=== PATIENT | female | born 1940 | race Caucasian/White ===

== ENCOUNTER 2024-01-18 10:57 | Emergency (ER) | payer MEDICARE, SELFPAY ==
[2024-01-18 11:17] VITALS: BP 145/95
--- NOTE | 2024-01-18 11:41 | ED.GENMED ---
History of Present Illness
<MICAELA Mondragon Last Filed: 01/18/24 20:22>
General
Chief Complaint: Abdominal Symptoms
Source: patient
Exam Limitations: none
Time Seen by Provider: 01/18/24 11:40
Nursing documentation reviewed up to this point in time: agreed with
History of Present Illness
History of Present Illness:
This is a 83 y/o female past medical history of migraine disorder, Shook's esophagus, GERD presenting emergency department today with concerns of 8 days of diarrhea. Patient states that 8 days ago, she started to have episodes of the diarrhea in
the morning. Patient notes these to be voluminous and explosive. She has 3 episodes in the morning and by the end of the day, it does subside. She denies any fevers or chills, bloody diarrhea, rectal bleeding, abdominal pain. Patient denies any
recent travel to the country. Patient denies any recent antibiotics. Patient denies any changes to her appetite. Patient is up-to-date on her vaccinations. Patient denies any recent new food or allergen exposures. Patient is not tried anything
for her diarrhea. Patient states that she was just moved from [place] and was unable to get an appointment with her new primary care provider. Patient denies chest pain, shortness of breath, back pain, weakness, lightheadedness.
Past History
<MICAELA Mondragon Last Filed: 01/18/24 20:22>
Past History
ED Past Medical History: GERD, Hypercholesterolemia, Hypothyroidism, Other (Colitis) and Other (Vertigo, balance problems with frequent falls)
Social History
Tobacco: Non-smoker
Personal:
Living: with family
Review of Systems
<MICAELA Mondragon Last Filed: 01/18/24 20:22>
Review of Systems
All Other Systems: ROS reviewed and negative except as documented in HPI and ROS
Phy Exam
<Sun Koch PA-C - Last Filed: 01/18/24 20:22>
Physical Exam
Physical Exam:
General: Patient is well appearing and in no acute distress; non-toxic
Skin: Warm and dry, no rashes or lesions
Head: Normocephalic, atraumatic
Eyes: Sclera non-icteric. EOMs intact.
Cardiac: Regular rate and rhythm, no murmurs
Pulm: Normal respiratory effort, no wheezes, rales, rhonchi
Abdomen: No abdominal tenderness to palpation, no palpable masses
Neuro: CN II-XII intact, no focal neurologic deficits.
Psychiatric: Appropriate mood and affect.
Course
Williamslt;Sun Koch PA-C - Last Filed: 01/18/24 20:22>
Orders/Labs/Results
Orders:
Orders
01/18/24 11:51
Complete Blood Count/With Diff Urgent
Comprehensive Metabolic Panel Urgent
Abnormal Lab Results
01/18/24
11:51
WBC 11.7 H 10^3/uL
(4.8-10.8)
Abs Immat Gran (auto) 0.1 H 10^3/uL
(0-0.05)
Absolute Neuts (auto) 8.0 H 10^3/uL
(1.4-6.5)
Absolute Monos (auto) 0.9 H 10^3/uL
(0.1-0.6)
Lymphocytes % 19.6 L %
(20.5-51.1)
Glucose 109 H mg/dl
(70-99)
01/18/24 11:51
01/18/24 11:51
Vital Signs
Initial and Last Documented VS:
Initial Vital Signs
Temp Pulse Resp BP Pulse Ox
98.5 F 53 18 145/95 92
01/18/24 11:17 01/18/24 11:17 01/18/24 11:17 01/18/24 11:17 01/18/24 11:17
Last Documented Vital Signs
Temp Pulse Resp BP Pulse Ox
98.7 F 97 18 128/96 95
01/18/24 14:43 01/18/24 14:43 01/18/24 14:43 01/18/24 14:43 01/18/24 14:43
<Jerrica العلي MD - Last Filed: 01/18/24 13:50>
Orders/Labs/Results
Orders:
Orders
01/18/24 11:51
Complete Blood Count/With Diff Urgent
Comprehensive Metabolic Panel Urgent
Abnormal Lab Results
01/18/24
11:51
WBC 11.7 H 10^3/uL
(4.8-10.8)
Abs Immat Gran (auto) 0.1 H 10^3/uL
(0-0.05)
Absolute Neuts (auto) 8.0 H 10^3/uL
(1.4-6.5)
Absolute Monos (auto) 0.9 H 10^3/uL
(0.1-0.6)
Lymphocytes % 19.6 L %
(20.5-51.1)
Glucose 109 H mg/dl
(70-99)
01/18/24 11:51
01/18/24 11:51
Vital Signs
Initial and Last Documented VS:
Initial Vital Signs
Temp Pulse Resp BP Pulse Ox
98.5 F 53 18 145/95 92
01/18/24 11:17 01/18/24 11:17 01/18/24 11:17 01/18/24 11:17 01/18/24 11:17
Last Documented Vital Signs
Temp Pulse Resp BP Pulse Ox
98.7 F 97 18 128/96 95
01/18/24 14:43 01/18/24 14:43 01/18/24 14:43 01/18/24 14:43 01/18/24 14:43
<Sun Koch PA-C - Last Filed: 01/18/24 20:22>
MDM/Problems Addressed
Differential Diagnosis Includes:
ddx include viral syndrome, c diff colitis, ibs
MDM/Problems Addressed:
Diarrhea:
This is a 83 y/o female past medical history of migraine disorder, Shook's esophagus, GERD presenting emergency department today with concerns of 8 days of diarrhea. Patient states that 8 days ago, she started to have episodes of the diarrhea in
the morning. Patient notes these to be voluminous and explosive. She has 3 episodes in the morning and by the end of the day, it does subside later on. Patient has not had any fevers or chills, she denies any blood in diarrhea, denies any rectal
bleeding. On exam, she is afebrile, her vitals are stable, and her CBC and CMP are unremarkable. No electrolyte derangements, no concern for acute dehydration at this time. Did attempt to obtain stool culture however patient was not able to
provide a sample while here. Patient has no tenderness on abdominal exam, no indication for CT at this time. Patient is stable for outpatient follow-up. Patient recently moved from [place] and is looking for a new animal herder, I did
provide referral.
Chronic conditions affecting care:
GERD, asthma, shook's esophagus hyperlipidemia, colitis
<Sun Koch PA-C - Last Filed: 01/18/24 20:22>
*Critical Care Note
Total Time (30-74mins, 75-104mins- exclusive of procedures): Not Applicable
ED Attending Note
<Sun Koch PA-C - Last Filed: 01/18/24 20:22>
-
Portions of this chart may have been created with voice recognition software.� Occasional wrong word or��sound alike� substitutions may have occurred due to the inherent limitations of voice recognition software.
<Jerrica العلي MD - Last Filed: 01/18/24 13:50>
ED Attending Note
Patient seen and examined by attending physician: Yes
I performed the substantive portion of visit, reviewed & personally made and approve the management plan that is documented in note by myself or SKY.: Yes
ED Attending Note:
83-year-old female presents emergency department with complaints of 'explosive' diarrhea every morning for the last 12 days. Presents emergency department because she states she has not yet transferred medical care to this area given her recent
move, but beginning January she will have a consistent primary care provider. She denies abdominal pain, fever, chills, bleeding, black stool, or other complaints. On exam, patient awake alert stable pleasant. Unable to provide a sample of
stool here. Workup generally unremarkable patient understands this is preliminary and continued workup as an outpatient important
Discharge Plan
Departure
Patient Disposition: Home (Routine Discharge)
Date of Disposition: 01/18/24
Time of Disposition: 14:21
Patient with high blood pressure during this ER visit?: Yes
Condition: Good
Discharge Problem:
Diarrhea
Instructions: Diarrhea, Adult ED, BLOOD PRESSURE
Referrals:
Anthony Hugo MD [Active] - Call in 1-3 days for appt
Andres Vivas MD [Active] - Call in 1-3 days for appt
NONE,* [Family Provider] -
Activity Restrictions/Additional Instructions:
You are seen here in the emergency department today for evaluation of diarrhea. Please follow-up with your primary care provider with your scheduled appointment as discussed.
Please return emergency department should you experience fevers or chills, lightheadedness, dizziness, nausea or vomiting, abdominal pain, bloody stools, rectal bleeding, chest pain, shortness of breath, or any other signs or symptoms concerning to
you.
Interventions
Interventions:
ED- Fall Risk Assessment Last Done: 01/18/24 14:43
*Nursing Disposition Last Done: 01/18/24 14:43
HH-Vzkpba-Fexhoxlwgm Assessment Last Done: 01/18/24 11:47
Discharge Date and Time
Discharge Date/Time: 01/18/24 14:46
Print Language: SWEDISH
[2024-01-18 11:59] LABS: % Basophils 0.5 % (0-2); % Eosinophils 3.8 % (0-6); % Immature Granulocytes 0.5 % (0-0.5); % Lymphocytes 19.6 % (20.5-51.1); % Monocytes 7.5 % (1.7-9.3); % Neutrophils 68.1 % (42.2-75.2); Absolute Basophils 0.1 10^3/uL (0-0.2); Absolute Eosinophils 0.4 10^3/uL (0-0.7); Absolute Immature Granulocytes 0.1 10^3/uL (0-0.05); Absolute Lymphocytes 2.3 10^3/uL (1.2-3.4); Absolute Monocytes 0.9 10^3/uL (0.1-0.6); Hematocrit 40.8 % (37.0-47.0); Mean Corp Hgb Conc. 34.3 g/dL (33.0-37.0); Mean Corpuscular Volume 90.5 fL (81.0-99.0); Mean Platelet Volume 8.9 fL (7.4-10.4); Nucleated Red Blood Cells % 0 %; Platelet Count 310 10^3/uL (130-400); Red Blood Cell Count 4.51 10^6/uL (4.20-5.40); Red Cell Dist. Width 13.4 % (11.5-14.5); White Blood Cell Count 11.7 10^3/uL (4.8-10.8)
[2024-01-18 12:14] LABS: ALT (SGPT) 28 U/L (0-35); AST (SGOT) 34 U/L (14-36); Albumin 4.3 g/dl (3.5-5.0); Alkaline Phosphatase 77 U/L (38-126); Blood Urea Nitrogen 16 mg/dl (7-17); Calcium 9.6 mg/dl (8.4-10.2); Carbon Dioxide 26 mmol/L (22-30); Chloride 100 mmol/L (98-107); Glucose 109 mg/dl (70-99); Potassium 3.8 mmol/L (3.5-5.1); Sodium 136 mmol/L (135-145); Total Bilirubin 0.7 mg/dl (0.2-1.3); Total Protein 7.2 g/dl (6.3-8.2); eGFR > 60.00
[2024-01-18 14:43] VITALS: BP 128/96
== END 2024-01-18 14:46 | disposition home or self-care (01) ==
LOC: EMR 10:57
PROVIDERS: Physician Assistant; EMERGENCY PHYSICIAN Emergency Medicine
DX: R19.7 Diarrhea, unspecified (principal); K22.70 Barrett's esophagus without dysplasia; K21.9 Gastro-esophageal reflux disease without esophagitis; R03.0 Elevated blood-pressure reading, without diagnosis of hypertension
CPT/HCPCS: 99283; 80053; 85025

== ENCOUNTER → 2024-03-06 15:31 | Outpatient (REF) | payer MEDICARE, SELFPAY ==
[2024-03-06 16:51] LABS: % Basophils 0.3 % (0-2); % Eosinophils 2.3 % (0-6); % Immature Granulocytes 0.7 % (0-0.5); % Lymphocytes 29.8 % (20.5-51.1); % Monocytes 8.9 % (1.7-9.3); Absolute Eosinophils 0.2 10^3/uL (0-0.7); Absolute Immature Granulocytes 0.1 10^3/uL (0-0.05); Absolute Lymphocytes 2.6 10^3/uL (1.2-3.4); Absolute Monocytes 0.8 10^3/uL (0.1-0.6); Hematocrit 42.8 % (37.0-47.0); Hemoglobin 14.3 g/dL (12.0-16.0); Mean Corp Hgb Conc. 33.4 g/dL (33.0-37.0); Mean Corpuscular Volume 89.9 fL (81.0-99.0); Mean Platelet Volume 9.5 fL (7.4-10.4); Nucleated Red Blood Cells % 0 %; Platelet Count 266 10^3/uL (130-400); Red Blood Cell Count 4.76 10^6/uL (4.20-5.40); Red Cell Dist. Width 14.1 % (11.5-14.5); White Blood Cell Count 8.6 10^3/uL (4.8-10.8)
[2024-03-06 17:00] LABS: ALT (SGPT) 24 U/L (0-35); AST (SGOT) 32 U/L (14-36); Albumin 4.4 g/dl (3.5-5.0); Alkaline Phosphatase 68 U/L (38-126); Blood Urea Nitrogen 19 mg/dl (7-17); Calcium 9.7 mg/dl (8.4-10.2); Carbon Dioxide 27 mmol/L (22-30); Chloride 102 mmol/L (98-107); Glucose 100 mg/dl (70-99); HDL Cholesterol 64 mg/dl; LDL Cholesterol, Calculated 116 mg/dl; Potassium 4.5 mmol/L (3.5-5.1); Sodium 143 mmol/L (135-145); Total Bilirubin 0.4 mg/dl (0.2-1.3); Total Cholesterol 223 mg/dl (50-199); Total Protein 7.2 g/dl (6.3-8.2); Triglyceride 216 mg/dl (10-149); Very Low Density Lipoprotein 43 mg/dl (0-30); eGFR > 60.00
[2024-03-06 17:18] LABS: Vitamin D, 25-OH*** 64.8 ng/mL (30-80)
[2024-03-06 17:32] LABS: TSH Reflex To Free T4 2.64 uIU/ml (0.47-4.68)
[2024-03-06 18:08] LABS: Folate > 20.0 ng/ml (2.76-20); Vitamin B12 709 pg/ml (239-931)
== END ==
LOC: OLABPV 15:31
DX: M06.9 Rheumatoid arthritis, unspecified (principal); M35.89 Other specified systemic involvement of connective tissue; E03.9 Hypothyroidism, unspecified; E55.9 Vitamin D deficiency, unspecified; F03.90 Unspecified dementia, unspecified severity, without behavioral disturbance, psychotic disturbance, mood disturbance, and anxiety
CPT/HCPCS: 36415; 80053; 80061; 82306; 82607; 82746; 84443; 85025

== ENCOUNTER → 2024-04-17 10:02 | Outpatient (REF) | payer MEDICARE, SELFPAY ==
[2024-04-17 11:14] LABS: % Basophils 0.5 % (0-2); % Eosinophils 1.3 % (0-6); % Immature Granulocytes 1.3 % (0-0.5); % Lymphocytes 25.7 % (20.5-51.1); % Monocytes 8.8 % (1.7-9.3); % Neutrophils 62.4 % (42.2-75.2); Absolute Basophils 0.1 10^3/uL (0-0.2); Absolute Eosinophils 0.1 10^3/uL (0-0.7); Absolute Immature Granulocytes 0.1 10^3/uL (0-0.05); Absolute Lymphocytes 2.5 10^3/uL (1.2-3.4); Absolute Monocytes 0.9 10^3/uL (0.1-0.6); Hemoglobin 14.8 g/dL (12.0-16.0); Mean Corp Hgb Conc. 33.6 g/dL (33.0-37.0); Mean Corpuscular Volume 92.2 fL (81.0-99.0); Mean Platelet Volume 9.3 fL (7.4-10.4); Nucleated Red Blood Cells % 0 %; Platelet Count 267 10^3/uL (130-400); Red Blood Cell Count 4.77 10^6/uL (4.20-5.40); Red Cell Dist. Width 15.4 % (11.5-14.5); White Blood Cell Count 9.7 10^3/uL (4.8-10.8)
[2024-04-17 12:04] LABS: ALT (SGPT) 24 U/L (0-35); AST (SGOT) 31 U/L (14-36); Albumin 4.3 g/dl (3.5-5.0); Alkaline Phosphatase 61 U/L (38-126); Blood Urea Nitrogen 19 mg/dl (7-17); Calcium 9.4 mg/dl (8.4-10.2); Carbon Dioxide 26 mmol/L (22-30); Chloride 104 mmol/L (98-107); Glucose 103 mg/dl (70-99); Potassium 4.5 mmol/L (3.5-5.1); Sodium 141 mmol/L (135-145); Total Bilirubin 0.5 mg/dl (0.2-1.3); Total Protein 7.1 g/dl (6.3-8.2); eGFR > 60.00
[2024-04-17 12:20] LABS: C-Reactive Protein < 5.00 mg/L (0.0-10.00)
[2024-04-17 14:52] LABS: Erythrocyte Sed Rate 12 mm/hour (0-20)
== END ==
LOC: OLABPV 10:02
PROVIDERS: ATTENDING PHYSICIAN Internal Medicine
DX: K75.9 Inflammatory liver disease, unspecified (principal); M06.4 Inflammatory polyarthropathy; Z51.81 Encounter for therapeutic drug level monitoring
CPT/HCPCS: 36415; 80053; 85025; 85652; 86140

== ENCOUNTER → 2024-05-11 09:20 | Outpatient (REF) | payer MEDICARE, SELFPAY ==
[2024-05-11 10:23] LABS: % Basophils 0.5 % (0-2); % Eosinophils 2.3 % (0-6); % Immature Granulocytes 0.7 % (0-0.5); % Lymphocytes 26.9 % (20.5-51.1); % Monocytes 6.8 % (1.7-9.3); % Neutrophils 62.8 % (42.2-75.2); Absolute Eosinophils 0.2 10^3/uL (0-0.7); Absolute Immature Granulocytes 0.1 10^3/uL (0-0.05); Absolute Monocytes 0.5 10^3/uL (0.1-0.6); Absolute Neutrophils 4.6 10^3/uL (1.4-6.5); Hematocrit 44.5 % (37.0-47.0); Hemoglobin 14.3 g/dL (12.0-16.0); Mean Corp Hgb Conc. 32.1 g/dL (33.0-37.0); Mean Corpuscular Hgb 31.4 pg (27.0-31.0); Mean Corpuscular Volume 97.6 fL (81.0-99.0); Mean Platelet Volume 9.1 fL (7.4-10.4); Nucleated Red Blood Cells % 0 %; Platelet Count 277 10^3/uL (130-400); Red Blood Cell Count 4.56 10^6/uL (4.20-5.40); Red Cell Dist. Width 15.7 % (11.5-14.5); White Blood Cell Count 7.4 10^3/uL (4.8-10.8)
[2024-05-11 10:47] LABS: ALT (SGPT) 24 U/L (0-35); AST (SGOT) 32 U/L (14-36); Alkaline Phosphatase 61 U/L (38-126); Blood Urea Nitrogen 18 mg/dl (7-17); Calcium 9.3 mg/dl (8.4-10.2); Carbon Dioxide 31 mmol/L (22-30); Chloride 104 mmol/L (98-107); Glucose 107 mg/dl (70-99); Potassium 4.2 mmol/L (3.5-5.1); Sodium 141 mmol/L (135-145); Total Bilirubin 0.4 mg/dl (0.2-1.3); Total Protein 6.5 g/dl (6.3-8.2); Uric Acid 6.4 mg/dl (2.5-6.2); eGFR 56.25
[2024-05-11 11:02] LABS: Hepatitis B Surface Antigen Negative (Negative)
[2024-05-11 11:20] LABS: Hepatitis C Antibody Negative (Negative)
[2024-05-11 12:33] LABS: Erythrocyte Sed Rate 44 mm/hour (0-20)
[2024-05-13 16:25] LABS: Quantiferon Mitogen minus NIL 9.93 IU/mL; Quantiferon NIL 0.07 IU/mL; Quantiferon Plus TB2 minus NIL 0.01 IU/mL (<=0.34); Quantiferon TB Gold Plus Negative (Negative)
[2024-05-13 23:20] LABS: CCP Antibody IgG/IgA 4 Units (0-19)
== END ==
LOC: OLABPV 09:20
PROVIDERS: ATTENDING PHYSICIAN Internal Medicine
DX: K75.9 Inflammatory liver disease, unspecified (principal); M06.4 Inflammatory polyarthropathy; Z51.81 Encounter for therapeutic drug level monitoring; Z22.7 Latent tuberculosis; M06.9 Rheumatoid arthritis, unspecified; M10.9 Gout, unspecified
CPT/HCPCS: 36415; 80053; 84550; 85025; 85652; 86140; 86200; 86430; 86480; 86705; 86803; 87340

== ENCOUNTER → 2024-06-14 07:00 | Outpatient (REF) | payer MEDICARE, SELFPAY ==
[2024-06-14 17:22] LABS: Urine Albumin Negative (Neg - Trace); Urine Bilirubin 1+ (Negative); Urine Character Clear (Clear); Urine Color Yellow; Urine Glucose Negative (Negative); Urine Ketone Negative (Negative); Urine Leukocyte Trace (Negative); Urine Nitrite Positive (Negative); Urine Occult Blood Trace (Negative); Urine Specific Gravity 1.015 (<1.030); Urine Urobilinogen 1+ (Neg - 1+); Urine pH 6.5 (5.0-9.0)
[2024-06-14 17:29] LABS: Urine Calcium Oxalate Crystals Present
[2024-06-14 17:31] LABS: Urine Bacteria Many (Negative); Urine Red Blood Cell 0-2 /HPF (0-2)
== END ==
LOC: OLABPV 07:00
PROVIDERS: ATTENDING PHYSICIAN Nurse Practitioner Acute Care
DX: R30.0 Dysuria (principal)
CPT/HCPCS: 81003; 81015; 87077; 87086; 87186

== ENCOUNTER → 2024-06-21 13:00 | Outpatient (REF) | payer MEDICARE, SELFPAY ==
[2024-06-21 17:23] LABS: Urine Albumin Trace (Neg - Trace); Urine Bilirubin Negative (Negative); Urine Character Clear (Clear); Urine Color Yellow; Urine Glucose Negative (Negative); Urine Ketone Negative (Negative); Urine Leukocyte 1+ (Negative); Urine Nitrite Negative (Negative); Urine Occult Blood Trace (Negative); Urine Specific Gravity 1.015 (<1.030); Urine Urobilinogen Negative (Neg - 1+)
[2024-06-21 17:49] LABS: Urine Squamous Cell 0-2 /LPF (Few)
[2024-06-21 17:50] LABS: Urine Amorphous Seen; Urine Bacteria Many (Negative); Urine Red Blood Cell 0-2 /HPF (0-2); Urine White Cell 16-20 /HPF (0-5)
== END ==
LOC: OLABPV 13:00
PROVIDERS: ATTENDING PHYSICIAN Nurse Practitioner Acute Care
DX: R31.9 Hematuria, unspecified (principal); R30.0 Dysuria
CPT/HCPCS: 81003; 81015; 87077; 87086

== ENCOUNTER → 2024-07-10 12:35 | Outpatient (REF) | payer MEDICARE, SELFPAY | LOC: RAD 12:35 | PROVIDERS: ATTENDING PHYSICIAN Nurse Practitioner Acute Care | DX: M06.9 Rheumatoid arthritis, unspecified (principal); Z79.52 Long term (current) use of systemic steroids; Z91.81 History of falling; Z78.0 Asymptomatic menopausal state; R06.00 Dyspnea, unspecified | CPT/HCPCS: 71046; 77080 ==

== ENCOUNTER → 2024-08-21 10:51 | Outpatient (REF) | payer MEDICARE, SELFPAY ==
[2024-08-21 11:19] LABS: % Basophils 0.6 % (0-2); % Immature Granulocytes 0.4 % (0-0.5); % Lymphocytes 31.3 % (20.5-51.1); % Monocytes 9.6 % (1.7-9.3); % Neutrophils 55.1 % (42.2-75.2); Absolute Eosinophils 0.2 10^3/uL (0-0.7); Absolute Lymphocytes 2.1 10^3/uL (1.2-3.4); Absolute Monocytes 0.6 10^3/uL (0.1-0.6); Absolute Neutrophils 3.7 10^3/uL (1.4-6.5); Hemoglobin 13.7 g/dL (12.0-16.0); Mean Corp Hgb Conc. 33.4 g/dL (33.0-37.0); Mean Corpuscular Hgb 32.3 pg (27.0-31.0); Mean Corpuscular Volume 96.7 fL (81.0-99.0); Mean Platelet Volume 9.2 fL (7.4-10.4); Nucleated Red Blood Cells % 0 %; Platelet Count 308 10^3/uL (130-400); Red Blood Cell Count 4.24 10^6/uL (4.20-5.40); White Blood Cell Count 6.7 10^3/uL (4.8-10.8)
[2024-08-21 11:39] LABS: Erythrocyte Sed Rate 9 mm/hour (0-20)
[2024-08-21 11:52] LABS: ALT (SGPT) 19 U/L (0-35); AST (SGOT) 26 U/L (14-36); Albumin 4.4 g/dl (3.5-5.0); Alkaline Phosphatase 69 U/L (38-126); Blood Urea Nitrogen 17 mg/dl (7-17); Calcium 9.8 mg/dl (8.4-10.2); Carbon Dioxide 27 mmol/L (22-30); Chloride 105 mmol/L (98-107); Glucose 100 mg/dl (70-99); HDL Cholesterol 55 mg/dl; LDL Cholesterol, Calculated 98 mg/dl; Potassium 4.3 mmol/L (3.5-5.1); Sodium 143 mmol/L (135-145); Total Bilirubin 0.5 mg/dl (0.2-1.3); Total Cholesterol 201 mg/dl (50-199); Total Protein 6.9 g/dl (6.3-8.2); Triglyceride 240 mg/dl (10-149); Very Low Density Lipoprotein 48 mg/dl (0-30); eGFR > 60.00
[2024-08-21 11:57] LABS: C-Reactive Protein < 5.00 mg/L (0.0-10.00)
[2024-08-21 12:33] LABS: Rheumatoid Agglutinin Less Than 10 IU (<10 IU)
[2024-08-21 12:38] LABS: Uric Acid 6.3 mg/dl (2.5-6.2)
[2024-08-23 04:47] LABS: Complement C3 128 mg/dl (88-165)
[2024-08-23 19:07] LABS: ds-DNA Ab, IgG Reflex To Titer 7 IU (0-24)
[2024-08-23 20:20] LABS: ANA, IgG Reflex to HEp-2 Detected (None Detected)
[2024-08-23 21:10] LABS: CCP Antibody IgG/IgA 4 Units (0-19)
[2024-08-23 22:43] LABS: SSA 52 (Ro)(ENA) Ab, IgG 38 AU/mL (0-40); SSA 60 (Ro)(ENA) Ab, IgG 36 AU/mL (0-40); SSB (La)(ENA) Ab, IgG 0 AU/mL (0-40); Smith (ENA) Antibody, IgG 4 AU/mL (0-40)
[2024-08-24 07:45] LABS: Smith/RNP (ENA), IgG 16 Units (0-19)
== END ==
LOC: OLABPV 10:51
PROVIDERS: ATTENDING PHYSICIAN Nurse Practitioner Acute Care; REFERRING PHYSICIAN Internal Medicine
DX: E78.5 Hyperlipidemia, unspecified (principal); M06.4 Inflammatory polyarthropathy; Z51.81 Encounter for therapeutic drug level monitoring; M06.9 Rheumatoid arthritis, unspecified; M32.9 Systemic lupus erythematosus, unspecified; M35.00 Sjogren syndrome, unspecified
CPT/HCPCS: 36415; 80053; 80061; 84550; 85025; 85652; 86038; 86140; 86160; 86200; 86225; 86235; 86430

== ENCOUNTER 2024-09-05 21:32 | Emergency (ER) | payer MEDICARE, SELFPAY ==
[2024-09-05 21:33] VITALS: BP 112/78; BMI 23.9
[2024-09-05 22:00] VITALS: BP 123/101
--- NOTE | 2024-09-05 22:26 | ED.GENMED ---
History of Present Illness
General
Chief Complaint: Fall
Source: patient, spouse, ambulance crew and previous hospital records (ED visit September 2018 after patient suffered a fall. At that time admitted to frequent falls, similar as arely.)
Exam Limitations: none
Time Seen by Provider: 09/05/24 22:06
Nursing documentation reviewed up to this point in time: agreed with
History of Present Illness
History of Present Illness:
This is an 83-year-old woman who resides with her at [facility]. She has history of rheumatoid arthritis, Sjogren syndrome, hypothyroidism, hyperlipidemia, ambulatory dysfunction with history of frequent falls. She admits
to suffering mechanical falls generally 1-2 times per month or so. Tonight she suffered a fall, falling forward and striking her forehead on the ground. She denies loss of consciousness, has been ambulatory since incident. She complains of
laceration to her right forehead, complains of mild generalized frontal headache and has had 2 episodes of vomiting since the fall, an additional episode of vomiting since arrival to the ED. She denies dizziness or lightheadedness, she denies neck
or back pain, no chest nor abdominal pain. She denies weakness or numbness.
She does note some right lateral hip pain and states that she was complaining of right lateral hip pain earlier this evening, prior to the fall.
She does have a cane that she uses sporadically. She states even though she suffers frequent falls she has not required a walker nor other assistive devices.
Unsure as to her last Tdap.
She takes no anticoagulants on a daily basis.
Her daily medications include: Methotrexate, Apriso, folic acid, Nexium, duloxetine, levothyroxine, simvastatin, prednisone.
Past History
Past History
ED Past Medical History: GERD, Hypercholesterolemia, Hypothyroidism, Other (Colitis) and Other (Vertigo, balance problems with frequent falls; rheumatoid arthritis, Sjogren syndrome)
ED Past Surgical History: Orthopedic (Right knee replacement; wrist surgery, ankle surgery), Tonsilectomy and Urological (Bladder)
Social History
Tobacco: Non-smoker
Alcohol: None
Personal:
Living: with family ([facility])
Employment: Retired
Family History
Family History: Other (Noncontributory)
Phy Exam
Physical Exam
Physical Exam:
TRAUMA EXAM:
VITAL SIGNS: Vital signs reviewed, cooperative. 83-year-old woman appears her stated age, bright and alert, quite chatty, pleasant and appears in no acute distress. Has vomited a fair amount of partially digested food.
DISTRESS: No active disease
EYES: Pupils reactive, no orbital trauma. Extraocular muscles intact.
NOSE: No deformity or epistaxis
FACE AND SCALP: There is a 3 cm vertical laceration right forehead, no active bleeding, mild local tenderness to palpation, no focal hematoma nor palpable bony abnormality, external canals no blood
NECK: Supple nontender
BACK: Back nontender, pelvis stable to compression
RESPIRATORY: No distress, breath sounds normal, no tender chest wall
CARDIAC: No murmur, pulses equal and strong
ABDOMEN: Soft nontender bowel sounds normal
SKIN: Warm and dry, normal color. Good turgor. Few small subacute ecchymotic patches bilateral lower extremities.
EXTREMITIES: Mild tenderness to palpation right lateral hip with full range of motion of right hip without difficulty. No palpable bony pelvic tenderness.
NEUROLOGICAL: Alert, oriented, no motor deficits
PSYCH: Mood affect normal
Course
Orders/Labs/Results
Orders:
Orders
09/05/24 22:22
CT Head W/o Iv Contrast Urgent
Comment:
Reason For Exam: fall, head injury, N/V
Cardiac Monitoring- Treatment ONCE
Lidocaine/Epinephrine/Tetracai [Let Topical Anesthetic Gel] 3 ml TOPICAL NOW STA
Ondansetron Injectable [Zofran] 4 mg IV NOW STA
Tetanus/Diphth/Acelpertussis [Adacel] 0.5 ml IM .ONCE ONE
09/05/24 22:23
CT Cervical Spine W/o Iv Contr Urgent
Comment:
Reason For Exam: fall, head injury, N/V
09/05/24 22:24
Electrocardiogram (*1) Urgent
Reason for Study: Vertigo / Dizzy
EKG- Treatment ONCE
Hip, Right 2-3 Views [CR Hip - RT w/wo Pel 2-3 Vw*] Urgent
Comment:
Reason For Exam: FALL, RIGHT HIP PAIN
Include a pelvis x-ray?: Yes
09/05/24 23:02
Complete Blood Count/With Diff Urgent
Comprehensive Metabolic Panel Urgent
Lipase Urgent
Abnormal Lab Results
09/05/24
23:02
WBC 13.7 H 10^3/uL
(4.8-10.8)
RBC 4.18 L 10^6/uL
(4.20-5.40)
MCH 31.8 H pg
(27.0-31.0)
Absolute Neuts (auto) 10.5 H 10^3/uL
(1.4-6.5)
Absolute Monos (auto) 0.9 H 10^3/uL
(0.1-0.6)
Neutrophils % 76.8 H %
(42.2-75.2)
Lymphocytes % 14.6 L %
(20.5-51.1)
BUN 18 H mg/dl
(7-17)
Glucose 114 H mg/dl
(70-99)
Calcium 10.3 H mg/dl
(8.4-10.2)
09/05/24 23:02
09/05/24 23:02
Vital Signs
Initial and Last Documented VS:
Initial Vital Signs
Temp Pulse Resp BP Pulse Ox
97.6 F 95 16 112/78 92
09/05/24 21:33 09/05/24 21:33 09/05/24 21:33 09/05/24 21:33 09/05/24 21:33
Last Documented Vital Signs
Temp Pulse Resp BP Pulse Ox
97.6 F 93 16 123/101 96
09/05/24 21:33 09/05/24 22:12 09/05/24 22:12 09/05/24 22:00 09/05/24 22:15
Procedures
Laceration Closure
Right Forehead:
Status of Wound: clean
Size of Wound in cm: 3.5
Description of Wound Edges: sharp
Preparation: cleaned with saline
Anesthesia: Topical-LET
Revision/Debridement: routine- no revision and irrigate-direct pressure
Wound exploration: explored to base- no FB and no tendon involvement
Type of Closure: Dermabond-skin glue (Steri-Strips applied over the wound to the lateral)
MDM/Problems Addressed
Differential Diagnosis Includes:
Closed head injury with forehead laceration with several episodes of vomiting. Significant concern for closed head injury. Will check CT of the head and due to head injury, advanced age, will check CT cervical spine.
Will update Tdap.
Patient has history of frequent falls and I suspect mechanical fall but will check labs, EKG, [employer], assess for potential arrhythmia.
Will give Zofran for nausea.
Right hip pain, concern for occult fracture, will check x-ray.
Chronic conditions affecting care:
Rheumatoid arthritis, chronic ambulatory dysfunction with frequent falls.
According to our records, chronic prednisone use thus at risk for osteoporosis, at risk for fracture.
Advanced age.
Chronic conditions affecting care: Neurological disorder (Ambulatory dysfunction with frequent falls) and Immunosuppressed
*Radiology
Radiology exam reviewed: preliminary read by ED provider (Right hip x-ray shows DJD, no fracture.) and radiology read reviewed (CT of the head and cervical spine no evidence of acute traumatic injury.)
*Pulse Oximetry
Patient hypoxic: no
*EKG
Interpreted by ED Provider?: Yes
Interpretation: normal
Comparison EKG: no comparison EKG present
Rate: normal
Rhythm: sinus
[place]: normal axis
Interval: normal interval
QRS Pattern: normal QRS
Ischemia: no ischemia
*Ste[employer]er Interpretation
Rate: normal
Interpretation: normal
Rhythm: sinus
*Critical Care Note
Total Time (30-74mins, 75-104mins- exclusive of procedures): Not Applicable
Update Note
Update Note:
00:15
Patient has had no further vomiting after a dose of Zofran.
She remains bright and alert, easily communicative, no focal neurodeficits.
CT of the head and cervical spine are unremarkable, no evidence of acute traumatic finding.
Right hip x-ray shows moderate DJD but no evidence of fracture.
Labs show mildly elevated white blood cell count of 13.7. Nonspecific but may be related to chronic prednisone use. Chemistries are unremarkable.
EKG is unremarkable showing normal sinus rhythm. Normal intervals. Monitor shows similar, normal sinus rhythm without ectopy.
She remains hemodynamically stable.
Right forehead laceration repaired with Dermabond wound glue and Steri-Strips. Routine wound care instructions discussed.
Recommend Tylenol as needed for pain.
Will prescribe Zofran ODT for as needed nausea.
Due to frequent falls I highly encourage patient to consider walker versus rollator and I have provided a prescription for rollator.
Recommend prompt follow-up with PCP as well as demolition expert.
Return precautions discussed.
ED Attending Note
-
Portions of this chart may have been created with voice recognition software.� Occasional wrong word or��sound alike� substitutions may have occurred due to the inherent limitations of voice recognition software.
Discharge Plan
Departure
Patient Disposition: Home (Routine Discharge)
Date of Disposition: 09/06/24
Time of Disposition: 00:18
Patient with high blood pressure during this ER visit?: No
Condition: Good
Discharge Problem:
mechanical fall at home, right forehead laceration, Closed head injury with concussion, Contusion of hip, right
Instructions: Concussion, Adult (DC), Laceration Repair With Glue (DC), Preventing falls in adults, Tdap vaccine, Nausea and vomiting in adults
Prescriptions:
New
ondansetron 4 mg tablet,disintegrating
4 mg PO QID PRN (Reason: nausea and vomiting) Qty: 20 0RF
(DME) Ultra-Light Rollator Misc
See Rx Instructions .ROUTE Qty: 1 0RF
Rx Instructions:
As directed
Referrals:
UNKNOWN - PT DOES,NOT KNOW [Unknown Provider] -
Activity Restrictions/Additional Instructions:
Follow-up with your PCP as well as demolition expert for recheck.
Keep the Steri-Strips/wound clean and dry for at least the next 4 to 5 days. Steri-Strips and wound glue will peel up and fall off on their own generally after 7 to 10 days.
Due to frequent falls I highly recommend you consider a walker versus rollator to utilize while ambulating.
Interventions
Interventions:
*Risk Screen - Suicide Last Done: 09/05/24 21:33
*General Assessment Last Done: 09/05/24 21:33
*Neglect/Abuse Screening Last Done: 09/05/24 21:33
*ED- Fall Risk Assessment Last Done: 09/05/24 21:33
*ED COVID-19 Vaccine History Last Done: 09/05/24 21:33
ED-Musculoskeletal Assessment Last Done: 09/05/24 21:46
ED- Neurological Assessment Last Done: 09/05/24 21:46
ED-Skin Assessment Last Done: 09/05/24 21:46
Discharge Date and Time
Print Language: ITALIAN
[2024-09-05] MEDS: LET TOPICAL ANESTHETIC GEL 3 ML TOPICAL (22:55)
[2024-09-05] MEDS: ADACEL 0.5 ML IM (22:55)
[2024-09-05] MEDS: ZOFRAN 4 MG IV (23:01)
[2024-09-05 23:02] VITALS: BP 126/72
[2024-09-05 23:17] LABS: % Basophils 0.4 % (0-2); % Eosinophils 1.2 % (0-6); % Immature Granulocytes 0.3 % (0-0.5); % Lymphocytes 14.6 % (20.5-51.1); % Monocytes 6.7 % (1.7-9.3); % Neutrophils 76.8 % (42.2-75.2); Absolute Basophils 0.1 10^3/uL (0-0.2); Absolute Eosinophils 0.2 10^3/uL (0-0.7); Absolute Monocytes 0.9 10^3/uL (0.1-0.6); Absolute Neutrophils 10.5 10^3/uL (1.4-6.5); Hemoglobin 13.3 g/dL (12.0-16.0); Mean Corp Hgb Conc. 34.1 g/dL (33.0-37.0); Mean Corpuscular Hgb 31.8 pg (27.0-31.0); Mean Corpuscular Volume 93.3 fL (81.0-99.0); Mean Platelet Volume 9.3 fL (7.4-10.4); Nucleated Red Blood Cells % 0 %; Platelet Count 339 10^3/uL (130-400); Red Blood Cell Count 4.18 10^6/uL (4.20-5.40); White Blood Cell Count 13.7 10^3/uL (4.8-10.8)
[2024-09-05 23:24] LABS: ALT (SGPT) 20 U/L (0-35); AST (SGOT) 33 U/L (14-36); Albumin 4.3 g/dl (3.5-5.0); Alkaline Phosphatase 76 U/L (38-126); Blood Urea Nitrogen 18 mg/dl (7-17); Calcium 10.3 mg/dl (8.4-10.2); Carbon Dioxide 30 mmol/L (22-30); Chloride 102 mmol/L (98-107); Estimated Creatinine Clearance 45 ml/min; Glucose 114 mg/dl (70-99); Lipase 191 U/L (23-300); Potassium 4.2 mmol/L (3.5-5.1); Sodium 139 mmol/L (135-145); Total Bilirubin 0.6 mg/dl (0.2-1.3); Total Protein 7.1 g/dl (6.3-8.2); eGFR > 60.00
[2024-09-06] VITALS: BP 97/21
== END 2024-09-06 00:46 | disposition home or self-care (01) ==
LOC: EMR 21:32
PROVIDERS: EMERGENCY PHYSICIAN Emergency Medicine; FAMILY PHYSICIAN Nurse Practitioner Acute Care
DX: S01.81XA Laceration without foreign body of other part of head, initial encounter (principal); S06.0XAA Concussion with loss of consciousness status unknown, initial encounter; S70.01XA Contusion of right hip, initial encounter; W19.XXXA Unspecified fall, initial encounter; Y92.009 Unspecified place in unspecified non-institutional (private) residence as the place of occurrence of the external cause; Z23 Encounter for immunization; M06.9 Rheumatoid arthritis, unspecified; M35.00 Sjogren syndrome, unspecified; E03.9 Hypothyroidism, unspecified; E78.00 Pure hypercholesterolemia, unspecified; M16.11 Unilateral primary osteoarthritis, right hip; Z60.2 Problems related to living alone; Z79.631 Long term (current) use of antimetabolite agent; Z79.890 Hormone replacement therapy; Z79.899 Other long term (current) drug therapy; Z96.651 Presence of right artificial knee joint
CPT/HCPCS: 99284; 12013; 96374; 90471; 70450; 72125; 73502; 80053; 83690; 85025; 90715; 93005

== ENCOUNTER → 2024-11-13 10:49 | Outpatient (REF) | payer MEDICARE, SELFPAY ==
[2024-11-13 11:36] LABS: HDL Cholesterol 50 mg/dl; LDL Cholesterol, Calculated 104 mg/dl; Total Cholesterol 203 mg/dl (50-199); Triglyceride 247 mg/dl (10-149); Very Low Density Lipoprotein 49 mg/dl (0-30)
== END ==
LOC: OLABPV 10:49
PROVIDERS: ATTENDING PHYSICIAN Nurse Practitioner Acute Care
DX: E78.5 Hyperlipidemia, unspecified (principal)
CPT/HCPCS: 36415; 80061